=== PATIENT | female | born 1970 | race Caucasian/White ===

== ENCOUNTER → 2017-01-22 | Outpatient (CLI) | payer MEDICARE, OTHER ==
--- NOTE | 2017-01-28 10:44 | MR ---
EXAMINATION TYPE: MR mecca/claudia wo/w con DATE OF EXAM: 01/22/2017 COMPARISON: 02/22/2016 HISTORY: Cephalgia CONTRAST: Performed utilizing 0 mL intravenous MultiHance gadolinium contrast. TECHNIQUE: Multiplanar multiecho imaging on a 3.0 Divya magnet is performed through the cervical spin e. FINDINGS: The craniovertebral junction is normal. Vertebral body alignment is normal. C7-T1: No focal disc herniation or significant disc bulge is evident. No spinal canal stenosis or n eural foraminal stenosis is present. C6-7: There is a right paracentral broad-based moderate sized disc herniation with moderate anterior thecal sac compression. Correlate with left C7 radicular symptoms. No cord contact is evident. No AP spinal canal stenosis is present. There is moderate to severe left foraminal stenosis.. C5-6: There is a large left paracentral disc herniation at C5-6 with moderate anterior thecal sac com pression. Some subtle cord deformity may be present multiple no cord contact is evident at the time o f this exam. Mild foraminal narrowing is present.. C4-5: No focal disc herniation or significant disc bulge is evident. No spinal canal stenosis or adam ral foraminal stenosis is present. C3-4: There is a small left paracentral to nearly left lateral disc bulge with moderate anterior thec al sac compression. No cord contact is evident. Correlate with left C4 radicular symptoms. C2-3: No focal disc herniation or significant disc bulge is evident. No spinal canal stenosis or adam ral foraminal stenosis is present. No abnormal enhancement is evident. Previous reported lipoma within the right splenius capitis is sta ble. IMPRESSIONS: 1. Stable left paracentral disc herniations at C5-6 C6-7. Correlate with left C6 and C7 radicular sym ptoms. 2. Small stable left paracentral to left lateral C3-4 disc bulge with endplate changes and moderate a nterior thecal sac compression. EXAMINATION TYPE: MR wing/claudia wo/w con DATE OF EXAM: 01/22/2017 COMPARISON: 02/27/2016 HISTORY: Lumbago CONTRAST: 0 mL intravenous MultiHance. TECHNIQUE: Multiplanar, multisequence images of the lumbar spine were acquired. FINDINGS: Cord terminates at the T12 level. Disc desiccation is throughout the lumbar spine. Narrowi ng of disc height at L5-S1 is present. L5-S1: No significant disc bulge or disc herniation. No spinal canal stenosis. No foraminal stenosi s. Facet degenerative changes are present.. L4-L5: There is a central focal bulge with mild to moderate anterior thecal sac compression. Left fac et hypertrophy has left lateral thecal sac compression. No AP spinal canal stenosis is present. No s jolene canal stenosis. No foraminal stenosis. . L3-L4: No significant disc bulge or disc herniation. No spinal canal stenosis. No foraminal stenosi s. Facet hypertrophy is contributing to AP spinal canal narrowing. Congenitally short pedicles are p resent. Borderline spinal canal stenosis is present. Lateral canal narrowing is present.. L2-L3: Disc bulge is present. There is a right paracentral disc herniation with mild to moderate ante rior thecal sac impression. Facet hypertrophy is posterior lateral thecal sac compression and some la teral canal narrowing. AP spinal canal stenosis present. Neural foramen are patent. L1-L2: Broad-based disc bulging is anterior thecal sac flattening. Facet hypertrophy is right posteri or lateral thecal sac compression. No spinal canal stenosis or neural foraminal stenosis is present No spinal canal stenosis. No foraminal stenosis. . T12-L1: No significant disc bulge or disc herniation. No spinal canal stenosis. No foraminal stenos is. . No abnormal enhancement. A left L5 pedicle screws present. Pedicle screws are present L4-5. IMPRESSION: 1. Congenitally short pedicles and facet hypertrophy contributing to spinal canal narrowing at L3-4. Some lateral canal narrowing due to facet hypertrophy is present. 2. Multilevel degenerative disc changes with loss of disc height at L5-S1 disc desiccation throughout the lumbar spine. 3. Small subligamentous disc herniation L2-L3. Spinal canal stenosis and lateral canal stenosis is pr esent.
--- NOTE | 2017-01-28 10:53 | MR ---
EXAMINATION TYPE: MR brain wo/w con DATE OF EXAM: 01/22/2017 COMPARISON: NONE, there is a report of prior MRI in 2008. Images are unavailable for comparison at th is time. HISTORY: Multiple sclerosis, pain CONTRAST: Performed utilizing intravenous MultiHance gadolinium contrast. TECHNIQUE: Multiplanar, multisequence imaging of the brain is performed on a 3.0 Divya magnet. Demye linating disease protocol with additional Sagittal Flair sequence is performed. Study is performed wi thin 24 hours of arrival to the hospital. FINDINGS: T2 White Matter Lesions Present : Yes Approximate Number of Lesions: Multiple scattered, predominantly left-sided Locations Identified : Subcortical periventricular bilateral centrum semiovale Size of Largest Lesion(s): 1. 0.4 x 0.4 x 0.4 cm. Location: Left subcortical white matter Sequence 501 Image 17 (axial) and Seq uence 601 Image 10 (sagittal). 2. 0.3 x 0.4 x 0.3 cm. Location: Anterior portion left basal ganglion lateral capsule Sequence 501 Image 15 (axial) and Sequence 601 Image 12 (sagittal). Enhancing Lesion(s) Present: No Change from Prior: Comparisons are available at this time. Diffusion-weighted imaging is performed. No abnormal hyperintensity is present to suggest an acute i ntracranial infarct or acute ischemic change. Ventricles and sulci are appropriate for the patient age. There are no abnormal extra-axial fluid collections. The ventricular system and cisternal spaces are normal in size and appearance. The brain volume is age appropriate. The craniocervical junction vickie ears within normal limits. The dural venous sinuses appear patent. No abnormal enhancement is present on post contrast images. . The visualized sinuses are clear. Visu alized orbits are unremarkable. Lipoma in the right splenius capitis is unchanged from cervical spine comparison. IMPRESSION: 1. Multiple scattered bilateral deep white matter changes which are nonspecific. Differential diagno sis could include multiple sclerosis. Other etiologies to consider would include but are not limited to chronic white matter ischemic type changes, vasculitis, Lyme disease, migraine headaches.
== END ==
LOC: RADMRIMAIN 12:48
PROVIDERS: ATTEND Nurse Practitioner Acute Care
DX: M50.21 Other cervical disc displacement, high cervical region (principal); M50.222 Other cervical disc displacement at C5-C6 level; M50.223 Other cervical disc displacement at C6-C7 level; M12.88 Other specific arthropathies, not elsewhere classified, other specified site; M51.36 Other intervertebral disc degeneration, lumbar region; M51.37 Other intervertebral disc degeneration, lumbosacral region; M51.26 Other intervertebral disc displacement, lumbar region; R90.82 White matter disease, unspecified
CPT/HCPCS: 70553; 72156; 72158; A9577

== ENCOUNTER → 2017-02-20 | Outpatient (CLI) | payer MEDICARE, OTHER | LOC: LABWHC1 13:07 | PROVIDERS: ATTEND Nurse Practitioner Acute Care | DX: G35 Multiple sclerosis (principal) | CPT/HCPCS: 36415; 93005 ==

== ENCOUNTER → 2021-02-06 | Outpatient (CLI) | payer MEDICARE, OTHER ==
[2021-02-06 18:36] LABS: African American GFR (CKD) 76.1 (60.0-200.0); Albumin 4.6 g/dL (3.80-4.90); Albumin/Globulin Ratio 1.7 (1.60-3.17); Anion Gap 8.5 mmol/L (4.00-12.00); Calcium 9.8 mg/dL (8.7-10.3); Carbon Dioxide 25.5 mmol/L (21.6-31.8); Globulin 2.7 g/dL (1.6-3.3); Non-African American GFR(CKD) 65.6 (60.0-200.0); Potassium 4.6 mmol/L (3.5-5.5); Total Bilirubin 0.3 mg/dL (0.3-1.2); Total Protein 7.3 g/dL (6.2-8.2)
[2021-02-06 19:09] LABS: Folate, Serum 23.5 ng/mL
[2021-02-06 19:30] LABS: Hepatitis B Core IgM Non-Reactive (Non-Reactive); Hepatitis B Surface AB- Quant 6.6 mIU/mL; Hepatitis B Surface Antibody Non-Reactive (Non-Reactive); Hepatitis B Surface Antigen Non-Reactive (Non-Reactive)
[2021-02-06 20:42] LABS: Hemoglobin A1C 5.8 % (4.0-6.0)
[2021-02-06 21:04] LABS: HIV 2 AB Non-Reactive (Non-Reactive); HIV AB P24 Non-Reactive (Non-Reactive); HIV P24 AG Non-Reactive (Non-Reactive)
[2021-02-08 04:46] LABS: Varicella IgM Antibody 0.64 INDEX (<=0.90)
[2021-02-08 11:53] LABS: IgG - CSF 2.6 mg/dL (0.0 - 3.4); IgG/Albumin Index (CSF) 0.45 (0.00 - 0.77)
== END | disposition home or self-care (01) ==
LOC: LABWHC1 12:05
PROVIDERS: ATTEND Psychiatry & Neurology Pain Medicine
DX: G35 Multiple sclerosis (principal)
CPT/HCPCS: 36415; 80053; 82040; 82042; 82306; 82607; 82746; 82784; 83036; 83916; 84207; 84425; 84439; 84443; 84481; 84591; 86704; 86705; 86706; 86787; 87340; 87390

== ENCOUNTER → 2021-07-19 | Outpatient (CLI) | payer MEDICARE, OTHER ==
[~2021-07-19] MED LIST: IODINE/POTASS IOD (LUGOLS) BOTTLE TOPICAL ONE
--- NOTE | 2021-07-20 10:03 | NM ---
EXAMINATION TYPE: NM DatScan Brain SPECT DATE OF EXAM: 07/19/2021 COMPARISON: MRI brain January 22, 2017 HISTORY: Essential tremor. TECHNIQUE: 10 drops of Lugol's solution was administered 1 hour prior to injection as a thyroid bloc eugenia agent. After the administration of 4.47 mCi I-123 Ioflupane DaTscan. Images obtained 3 hours p ost injection. SPECT images of the brain were acquired with axial and coronal reconstructions. FINDINGS: The DaTSCAN demonstrates normal uptake of tracer throughout the bilateral striata. Consequently there is no evidence of loss of the pre-synaptic dopaminergic terminals on this investig ation. IMPRESSION: This normal appearance is against a diagnosis of idiopathic Parkinson?s disease (PD) or a Parkinsonia n syndrome (PS) and is seen in healthy individuals and also patients with essential tremor (ET), drug induced parkinsonism, and vascular pseudo-parkinsonism.
== END | disposition home or self-care (01) ==
LOC: RADNMMAIN 10:44
PROVIDERS: ATTEND Psychiatry & Neurology Neurology
DX: G25.0 Essential tremor (principal)
CPT/HCPCS: 78803; A9584

== ENCOUNTER → 2022-12-14 | Outpatient (CLI) | payer MEDICARE, OTHER | END | disposition home or self-care (01) | LOC: LABWHC1 13:42 | PROVIDERS: ATTEND Nurse Practitioner Family | DX: E27.40 Unspecified adrenocortical insufficiency (principal) | CPT/HCPCS: 36415; 82024 ==

== ENCOUNTER → 2023-04-02 | Outpatient (CLI) | payer MEDICARE, OTHER ==
[2023-04-02 15:57] LABS: ALT 11 U/L (8-44); AST 35 U/L (13-35); Albumin 4.6 d/dL (3.8-4.9); Albumin/Globulin Ratio 1.92 Ratio (1.60-3.17); Alkaline Phosphatase 101 U/L (41-126); BUN/Creat Ratio 18.75 Ratio (12.00-20.00); Calcium 9.4 mg/dL (8.7-10.3); Carbon Dioxide 24.3 mmol/L (21.6-31.8); Chloride 105 mmol/L (96-109); Globulin 2.4 d/dL (1.6-3.3); Glucose 131 mg/dL (70-110); Potassium 4.2 mmol/L (3.5-5.5); Sodium 142 mmol/L (135-145); Total Bilirubin <0.2 mg/dL (0.3-1.2)
[2023-04-02 16:21] LABS: HCT 35.3 % (37.2-46.3); HGB 10.8 d/dL (12.0-15.0); MCH 28.2 pg (27.0-32.0); MCHC 30.6 d/dL (32.0-37.0); MCV 92.2 FL (80.0-97.0); Mean Platelet Volume 9.7 FL (9.5-12.2); NRBC Per 100 WBC 0 X 10*3/uL (0.00-0.01); Platelet Count 292 X 10*3/uL (140-440); RBC 3.83 X 10*6/uL (4.10-5.20); RDW 13.1 % (11.5-14.5); WBC 7.18 X 10*3/uL (4.50-10.00)
== END | disposition home or self-care (01) ==
LOC: LABWHC1 12:29
PROVIDERS: ATTEND Psychiatry & Neurology Neurology
DX: Z01.818 Encounter for other preprocedural examination (principal); Z51.81 Encounter for therapeutic drug level monitoring; R00.1 Bradycardia, unspecified; R94.31 Abnormal electrocardiogram [ECG] [EKG]
CPT/HCPCS: 36415; 80053; 85027; 93005